=== PATIENT | male | born 1970 | race Caucasian/White ===

== ENCOUNTER 2023-03-05 18:20 | Emergency (ER) | payer BC, SELFPAY ==
[2023-03-05 18:24] VITALS: BP 175/104
[2023-03-05 18:54] LABS: % Basophils 0.1 % (0-2); % Eosinophils 0.3 % (0-6); % Immature Granulocytes 0.3 % (0-0.5); % Lymphocytes 11.4 % (20.5-51.1); % Neutrophils 76.9 % (42.2-75.2); Absolute Lymphocytes 1.1 10^3/uL (1.2-3.4); Absolute Monocytes 1.1 10^3/uL (0.1-0.6); Absolute Neutrophils 7.7 10^3/uL (1.4-6.5); Hematocrit 44.5 % (39.0-52.0); Hemoglobin 15.4 g/dL (13.0-18.0); Mean Corp Hgb Conc. 34.6 g/dL (33.0-37.0); Mean Corpuscular Hgb 31.3 pg (27.0-31.0); Mean Corpuscular Volume 90.4 fL (80.0-94.0); Mean Platelet Volume 10.7 fL (7.4-10.4); Nucleated Red Blood Cells % 0 % (-); Platelet Count 208 10^3/uL (130-400); Red Blood Cell Count 4.92 10^6/uL (4.70-6.10); Red Cell Dist. Width 13.7 % (11.5-14.5)
[2023-03-05 19:09] LABS: ALT (SGPT) 37 U/L (0-50); AST (SGOT) 35 U/L (17-59); Albumin 4.3 g/dl (3.5-5.0); Alkaline Phosphatase 87 U/L (38-126); Blood Urea Nitrogen 11 mg/dl (9-20); Carbon Dioxide 24 mmol/L (22-30); Chloride 104 mmol/L (98-107); Glucose 101 mg/dl (70-99); Potassium 3.7 mmol/L (3.5-5.1); Sodium 136 mmol/L (135-145); Total Bilirubin 0.8 mg/dl (0.2-1.3); Total Protein 7.1 g/dl (6.3-8.2); eGFR > 60.00
[2023-03-05 20:35] VITALS: BMI 35.4
--- NOTE | 2023-03-05 20:57 | ED.GENMED ---
History of Present Illness
General
Chief Complaint: Back Pain
Source: patient
Exam Limitations: none
Time Seen by Provider: 03/05/23 20:27
Travel History
Have you had any contact with someone who has COVID-19?: No
Do you have any symptoms of coronavirus? Fever > 100 degrees, chills, cough, shortness of breath, sore throat, loss of taste or smell, muscle aches, or headache?: No
History of Present Illness
History of Present Illness:
This is a 52 year old male that comes in with c/o abd pain and pain on the end of his penis and his back on the left sided. States that this started at 1pm today. States that he felt hot and cold and then he has been vomiting. States that he take
Ibuprofen 600mg every 6 hours for his lupus and he took this about 3pm. States that he does have pain with urination. Denies any fever, chest pain, SOB, diarrhea, headache, dizziness.
Past History
Past History
ED Past Medical History: HTN, Hypercholesterolemia and Other (Lupus)
ED Past Surgical History: None
Social History
Tobacco: Non-smoker
Alcohol: None
Drug: None
Personal:
Living: with family
Review of Systems
Review of Systems
All Other Systems: ROS reviewed and negative except as documented in HPI and ROS
Constitutional: Reports other (Feels hot and then cold)
EENT: Reports no symptoms
Respiratory: Reports no symptoms; Denies cough or trouble breathing
Cardiac: Reports no symptoms; Denies chest pain
ABD/GI: Reports abdominal pain, nausea and vomiting; Denies diarrhea
: Reports dysuria and other (Pain into his Penis); Denies frequency or urgency
Musculoskeletal: Reports no symptoms
Skin: Reports no symptoms
Neurological: Reports no symptoms; Denies dizzy or headache
Psychiatric: Reports no symptoms
Phy Exam
General Physical Exam
General Presentation: mild distress
General age: appears stated age
General Skin: warm and dry
General Habitus: normal
General Mental: alert
General Hydration: appears well hydrated
ENT Exam
ENT Exam: TM's normal, pharynx normal and neck supple
Eye Exam
Eye Exam: EOMI
Cardiovascular Exam
Cardiovascular Exam: regular rate/rhythm, no edema, no murmur and normal peripheral pulses
Pulmonary Exam
Pulmonary Exam: lungs clear, no respiratory distress, no rales, chest non tender, no crackles, no rhonchi, no wheezing and no cough
Gastrointestinal Exam
Gastrointestinal Exam: normal bowel sounds, soft, no organomegaly, no pulsatile mass, non distended, no cva tenderness and tender (left sided tenderness with palpation)
Musculoskeletal Exam
Musculoskeletal Exam: full ROM and no edema
Skin Exam
Skin Exam: normal color, warm/dry, no rash and no petechia
Psychiatric Exam
Psychiatric Exam: normal mood/affect
Course
Orders/Labs/Results
Orders:
Orders
03/05/23 18:39
CMP [Comprehensive Metabolic Panel] Urgent
Complete Blood Count/With Diff Urgent
03/05/23 20:56
CT Abd/pelvis W Iv Cont Urgent
Comment:
Reason For Exam: Left sided abd pain and superpubic pain
0.9% Sodium Chloride 1000 ml [Nss] 1,000 ml IV BOLUS
03/05/23 21:12
Urinalysis Urgent
Urine Microscopic Urgent
03/05/23 23:28
Tamsulosin [Flomax] 0.4 mg PO NOW STA
Abnormal Lab Results
03/05/23 03/05/23
18:39 21:12
MCH 31.3 H pg
(27.0-31.0)
MPV 10.7 H fL
(7.4-10.4)
Absolute Neuts (auto) 7.7 H 10^3/uL
(1.4-6.5)
Absolute Lymphs (auto) 1.1 L 10^3/uL
(1.2-3.4)
Absolute Monos (auto) 1.1 H 10^3/uL
(0.1-0.6)
Neutrophils % 76.9 H %
(42.2-75.2)
Lymphocytes % 11.4 L %
(20.5-51.1)
Monocytes % 11.0 H %
(1.7-9.3)
Glucose 101 H mg/dl
(70-99)
Urine Occult Blood 4+ A
(Negative)
Urine RBC 26-30 A /HPF
(0-2)
03/05/23 18:39
03/05/23 18:39
Glucose nonfasting. Urine negative for infection.
Vital Signs
Initial and Last Documented VS:
Initial Vital Signs
Temp Pulse Resp BP Pulse Ox
97.9 F 78 18 175/104 99
03/05/23 18:24 03/05/23 18:24 03/05/23 18:24 03/05/23 18:24 03/05/23 18:24
Last Documented Vital Signs
Temp Pulse Resp BP Pulse Ox
97.9 F 78 18 175/104 99
03/05/23 18:24 03/05/23 18:24 03/05/23 18:24 03/05/23 18:24 03/05/23 18:24
MDM/Problems Addressed
Differential Diagnosis Includes:
renal calculus, Diverticulitis, UTI
MDM/Problems Addressed:
This is a 52 year old male that comes in with c/o abd pain, back pain and pain in the penis. States that this started at 1pm today. States that he feels hot and then cold.
Will get labs and CT scan. Will give IV fluids and check urine.
Back into see patient. Explained that his CT show a 9.3mm calculus at the left UVJ. Patient at this time is comfortable with the IV fluids. Will give Flomax. Message sent to dr. Mock. He will look at patient CT and decide of he can try going home.
Await his call back .
Dr. Mock states that the stone is ready to drop into the bladder. Patient can try going home or be admitted. Patient has decided to go home and use Flomax and Toradol for pain. Patient to call the urologist office tomorrow for follow up. Patient
to return with increased pain, fever, or any other concerns.
Chronic conditions affecting care:
Lupus
Acute Exacerbation and/or Progression of Chronic Illness:
NA
*Radiology
Radiology exam reviewed: radiology read reviewed (CT- Moderate acute left hydroureteronephrosis secondary to a large 9.3mm obstructing calculus at the left ureterovesical junction. Moderate to severe diffuse hepatic steatosis. Mild splenomegaly.
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
*Pulse Oximetry
Patient hypoxic: no
*EKG
Interpreted by ED Provider?: NA
Rate: EKG- N/A
*Stock Letterer Interpretation
Rate: Stock Letterer- N/A
*Critical Care Note
Total Time (30-74mins, 75-104mins- exclusive of procedures): Not Applicable
ED Attending Note
-
Portions of this chart may have been created with voice recognition software.� Occasional wrong word or��sound alike� substitutions may have occurred due to the inherent limitations of voice recognition software.
Discharge Plan
Departure
Patient Disposition: Home (Routine Discharge)
Date of Disposition: 03/06/23
Time of Disposition: 00:09
Patient with high blood pressure during this ER visit?: Yes
Condition: Good
Covid-19: Not Applicable
Discharge Problem:
Renal calculus, right
Instructions: Renal Colic (DC), How to Strain Your Urine, BLOOD PRESSURE
Prescriptions:
New
tamsulosin [Flomax] 0.4 mg capsule
0.4 mg PO HS Qty: 7 0RF
ketorolac 10 mg tablet
10 mg PO Q8H PRN (Reason: Pain) Qty: 10 0RF
No Action
pravastatin 40 mg tablet
40 mg PO HS
lisinopril 20 mg tablet
20 mg PO HS
prednisone 5 mg tablet
5 mg PO DAILY
pimecrolimus 1 % cream
1 applic TOPICAL DAILY
Rx Instructions:
apply to face for rosacea
methotrexate sodium 2.5 mg tablet
12.5 mg PO WE@0900,2230
Patient Comments:
03/05/2023: Pt takes a total of 10 tabs on Wednesdays, 5 tabs BID on Friday only.
tamsulosin 0.4 mg capsule
0.4 mg PO HS
benzonatate 100 mg capsule
100 mg PO TID PRN (Reason: cough)
folic acid 1 mg tablet
1 mg PO HS
hydroxychloroquine 200 mg tablet
200 mg PO BID
albuterol sulfate 90 mcg/actuation HFA aerosol inhaler
2 puff INHALATION R Q4 PRN (Reason: sob)
ipratropium bromide 21 mcg (0.03 %) spray,non-aerosol
2 spray INTRANASAL BID
Referrals:
Trent Mock MD [Active] - Follow up in 2-3 days
Messi Johansen DO [Family Provider] -
Activity Restrictions/Additional Instructions:
As discussed, your blood work is normal. Your CT shows that you have a 9.3mm stone that is just about ready to drop into the Bladder. Please strain all your urine. Please increase your water intake to 8-8oz glasses daily. You have had 2
prescriptions sent to the Pharmacy. The first is for Flomax that will help relax the smooth muscle so you can pass the stone. The second is for Toradol that will help decrease the pain. Please call the urologist office tomorrow and they will get you
in for a follow up appointment. IF YOU HAVE INCREASED PAIN, FEVER, OR ANY DIFFICULTY VOIDING PLEASE RETURN TO THE EMERGENCY ROOM.
Interventions
Interventions:
*Risk Screen - Suicide Last Done: 03/05/23 20:36
*General Assessment Last Done: 03/05/23 21:21
*Neglect/Abuse Screening Last Done: 03/05/23 20:36
ED- Fall Risk Assessment Last Done: 03/05/23 21:20
*ED COVID-19 Vaccine History Last Done: 03/05/23 20:35
[2023-03-05] MEDS: NSS 1000 IV (21:06)
[2023-03-05 21:18] LABS: Urine Albumin Trace (Neg - Trace); Urine Bilirubin Negative (Negative); Urine Character Clear (Clear); Urine Color Yellow; Urine Glucose Negative (Negative); Urine Ketone Negative (Negative); Urine Leukocyte Negative (Negative); Urine Nitrite Negative (Negative); Urine Occult Blood 4+ (Negative); Urine Urobilinogen Negative (Neg - 1+)
[2023-03-05 21:29] LABS: Urine Mucus Many; Urine Red Blood Cell 26-30 /HPF (0-2); Urine Squamous Cell 0-2 /LPF (Few); Urine White Cell None Seen /HPF (0-5)
[2023-03-06] MEDS: FLOMAX 0.400000000000000022 MG PO (00:03)
[2023-03-06 00:11] VITALS: BP 137/82
== END 2023-03-06 00:37 | disposition home or self-care (01) ==
LOC: EMR 18:20
PROVIDERS: Emergency Medicine; EMERGENCY PHYSICIAN Emergency Medicine; FAMILY PHYSICIAN Family Medicine
DX: N13.2 Hydronephrosis with renal and ureteral calculous obstruction (principal); I10 Essential (primary) hypertension
CPT/HCPCS: 99285; 96360; 74177; 80053; 81003; 81015; 85025; Q9967

== ENCOUNTER 2023-03-10 06:35 | Day surgery (SDC) | payer BC, SELFPAY ==
[2023-03-10] VITALS (11 sets, daily range): BP systolic 120–162; BP diastolic 76–105; BMI 33.7
[2023-03-10] MEDS: DETROL LA 4 MG PO (16:26)
[2023-03-10] MEDS: DILAUDID 0.5 MG IV (16:38)
[2023-03-10] MEDS: ROXICODONE 5 MG PO (17:46)
[2023-03-15 11:17] LABS: Stone Analysis Mass 311 mg
== END 2023-03-10 18:20 | disposition home or self-care (01) ==
LOC: SDS 06:35
PROVIDERS: ATTENDING PHYSICIAN Surgery
DX: N21.0 Calculus in bladder (principal); N13.2 Hydronephrosis with renal and ureteral calculous obstruction
CPT/HCPCS: 52317; 82365; 87070; 93005; A4300; C1758; C1769; C1894

== ENCOUNTER → 2023-10-14 09:55 | Outpatient (REF) | payer BC, SELFPAY | LOC: RCS 09:55 | PROVIDERS: ATTENDING PHYSICIAN Internal Medicine Cardiovascular Disease; FAMILY PHYSICIAN Family Medicine | DX: I34.0 Nonrheumatic mitral (valve) insufficiency (principal) | CPT/HCPCS: 93306 ==

== ENCOUNTER → 2024-12-13 07:03 | Outpatient (REF) | payer BC, SELFPAY | LOC: RCS 07:03 | PROVIDERS: ATTENDING PHYSICIAN Internal Medicine Cardiovascular Disease; FAMILY PHYSICIAN Family Medicine | DX: R06.02 Shortness of breath (principal) | CPT/HCPCS: 93306; Q9950 ==